=== PATIENT | male | born 1995 | race Asian ===

== ENCOUNTER 2022-01-09 19:33 | Emergency (ER) | payer OTHER ==
[~2022-01-09] VITALS: Ht 175.3 cm; Wt 68.0 kg
[2022-01-09 19:47] VITALS: BP 110/69
--- NOTE | 2022-01-09 19:47 | NUR ---
BIBS C/O RIGHT RING FINGER LAC S/P "SLICING VEGGIES". TDAP NOT UTD. PT A/OX4. AMBULATORY .
--- NOTE | 2022-01-09 19:49 | NUR ---
PT SEEN BY DR. KHANG YEBOAH
[2022-01-09] MEDS ORDERED: TDAP [DIPH/PERTUSSIS/TET] 0.5 ML VIAL IM ONE ×2 (19:57→20:00)
--- NOTE | 2022-01-09 20:04 | NUR ---
Patient discharged to home in stable condition. Written and verbal after care instructions given. Patient verbalizes understanding of instruction. PT ambulatory with a steady gait
== END 2022-01-09 20:07 | disposition home or self-care (01) ==
LOC: ER 19:38
DX: S61.210A Laceration without foreign body of right index finger without damage to nail, initial encounter (principal); W26.8XXA Contact with other sharp object(s), not elsewhere classified, initial encounter; Y93.89 Activity, other specified; Y92.89 Other specified places as the place of occurrence of the external cause; Y99.8 Other external cause status
CPT/HCPCS: 90715